=== PATIENT | male | born 1995 | race Caucasian/White ===

== ENCOUNTER → 2018-09-05 21:23 | Emergency (ER) | payer BC ==
[~2018-09-05 21:23] MED LIST: Bupivacaine 0.5% W/EPI SDV* 30 ML VIAL INJ ONE; Bupivacaine 0.5% W/EPI SDV* 30 ML VIAL ONE; Dexamethasone TAB* 4 MG PO ONE; Diazepam TAB(*) 5 MG PO ONE; Ketorolac TAB * 10 MG TAB PO ONE
--- NOTE | 2018-09-05 22:14 | ED ---
Back Pain - HPI Summary HPI Summary: Patient complains of sudden onset severe mid back pain while lifting load at work this evening. Denies urinary retention, incontinenc, radiation of pain down legs, decrease in function or sensation of bilateral lower extremities. Patient ambulatory with pain. Medical history is none. - History of Current Complaint Chief Complaint: EDBackInjuryPain Stated Complaint: BACK PAIN PER EMS Time Seen by Provider: 09/05/18 21:39 Hx Obtained From: Patient Onset/Duration: Sudden Onset Onset/Duration: Started Hours Ago Timing: Constant Back Pain Location: Is Discrete @ Severity Initially: Severe Severity Currently: Severe Pain Intensity: 10 Pain Scale Used: 0-10 Numeric Character: Throbbing, Spasmodic Aggravating Symptom(s): Movement, Bending, Walking Alleviating Symptom(s): Position Associated Signs And Symptoms: Positive: Negative - Allergies/Home Medications Allergies/Adverse Reactions: Allergies Allergy/AdvReac Type Severity Reaction Status Date / Time No Known Allergies Allergy Verified 09/05/18 21:32 PMH/Surg Hx/FS Hx/Imm Hx Endocrine/Hematology History: Denies: Hx Diabetes Cardiovascular History: Denies: Hx Hypertension, Hx Pacemaker/ICD Respiratory History: Reports: Hx Asthma History: Denies: Hx Renal Disease Sensory History: Denies: Hx Hearing Aid Opthamlomology History: Denies: Hx Legally Blind EENT History: Denies: Hx Deafness Neurological History: Denies: Hx Dementia Psychiatric History: Denies: Hx Panic Disorder Infectious Disease History: No Infectious Disease History: Denies: Traveled Outside the [place] in Last 30 Days - Social History Alcohol Use: None Substance Use Type: Reports: None Smoking Status (MU): Never Smoked Tobacco Review of Systems Constitutional: Negative Eyes: Negative ENT: Negative Cardiovascular: Negative Respiratory: Negative Gastrointestinal: Negative Genitourinary: Negative Musculoskeletal: Other Skin: Negative Neurological: Negative Psychological: Normal All Other Systems Reviewed And Are Negative: Yes Physical Exam - Summary Physical Exam Summary: Tender to palpation along purpose spinal muscles of the lower thoracic spine. No bony point tenderness. Paraspinal muscles along lumbar spine nontender. PMS intact distally in bilateral lower extremities. No erythema, ecchymosis, mass, deformity, swelling noted to back. Abdomen soft nontender. Triage Information Reviewed: Yes Vital Signs On Initial Exam: Initial Vitals Temp Pulse Resp BP Pulse Ox 99.6 F 96 18 145/83 97 09/05/18 21:30 09/05/18 21:30 09/05/18 21:30 09/05/18 21:30 09/05/18 21:30 Vital Signs Reviewed: Yes Appearance: Positive: Well-Appearing Skin: Positive: Warm Head/Face: Positive: Normal Head/Face Inspection Eyes: Positive: Normal Neck: Positive: Supple Respiratory/Lung Sounds: Positive: Clear to Auscultation Cardiovascular: Positive: Normal Abdomen Description: Positive: Nontender Musculoskeletal: Positive: Normal Neurological: Positive: Normal Psychiatric: Positive: Normal AVPU Assessment: Alert - Wilfrid Coma Scale Best Eye Response: 4 - Spontaneous Best Motor Response: 6 - Obeys Commands Best Verbal Response: 5 - Oriented Coma Scale Total: 15 Diagnostics - Vital Signs Vital Signs Temp Pulse Resp BP Pulse Ox 09/05/18 22:00 86 96 09/05/18 21:49 18 09/05/18 21:31 94 145/83 97 09/05/18 21:30 99.6 F 96 18 145/83 97 - Laboratory Lab Statement: Any lab studies that have been ordered have been reviewed, and results considered in the medical decision making process. Back Pain Course/Dx - Course Course Of Treatment: Patient complains of sudden onset severe mid back pain while lifting load at work this evening. Denies urinary retention, incontinenc , radiation of pain down legs, decrease in function or sensation of bilateral lower extremities. Patient ambulatory with pain. Medical history is none. Physical exam:Tender to palpation along purpose spinal muscles of the lower thoracic spine. No bony point tenderness. Paraspinal muscles along lumbar spine nontender. PMS intact distally in bilateral lower extremities. No erythema, ecchymosis, mass, deformity, swelling noted to back. Abdomen soft nontender. Vital signs within normal limits. Patient did not improve with Toradol and Valium 5 mg by mouth. Lidocaine trigger point injection administered by Dr. Wright with immediate improvement in patient's back pain. Patient sat up and was ambulatory within minutes. Rx for Flexeril. Occurred at work. - Diagnoses Provider Diagnoses: Muscle spasm Discharge - Sign-Out/Discharge Documenting (check all that apply): Patient Departure Patient Received Moderate/Deep Sedation with Procedure: No - Discharge Plan Condition: Stable Disposition: HOME Prescriptions: Cyclobenzaprine TAB* [Flexeril 10 MG TAB*] 10 mg PO TID PRN 4 Days #12 tab PRN Reason: Pain Patient Education Materials: Muscle Spasm (ED) Forms: *Work Release Referrals: Frank Doll MD [Primary Care Provider] - Additional Instructions: Take Flexeril each night before you go to bed. Movement is good but avoid strenuous activity for couple days. Return to the ED for any new or worsening symptoms. - Billing Disposition and Condition Condition: STABLE Disposition: Home
--- NOTE | 2018-09-05 22:48 | ED ---
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 He was injected with a total of 20 cc of 0.5% bupivacaine with epinephrine and divided aliquots. This was massaged through the tissues. He experienced great relief of his pain and spasm and regained range of motion. He tolerated this well without complication. Course/Dx - Diagnoses Provider Diagnoses: Muscle spasm Discharge - Sign-Out/Discharge Documenting (check all that apply): Patient Departure - D/C home Patient Received Moderate/Deep Sedation with Procedure: No - Discharge Plan Condition: Stable Disposition: HOME Prescriptions: Cyclobenzaprine TAB* [Flexeril 10 MG TAB*] 10 mg PO TID PRN 4 Days #12 tab PRN Reason: Pain Patient Education Materials: Muscle Spasm (ED) Forms: *Work Release Referrals: Frank Doll MD [Primary Care Provider] - Additional Instructions: Take Flexeril each night before you go to bed. Movement is good but avoid strenuous activity for couple days. Return to the ED for any new or worsening symptoms. - Billing Disposition and Condition Condition: STABLE Disposition: Home - Attestation Statements Document Initiated by Jankiibe: Yes Documenting Scribe: Carlos Lynch Provider For Whom Scribe is Documenting (Include Credential): Yonathan Cantu MD Scribe Attestation: Carlos Henderson scribed for Yonathan Cantu MD on 09/06/18 at 0425. Scribe Documentation Reviewed: Yes Provider Attestation: The documentation as recorded by the Carlos banks accurately reflects the service I personally performed and the decisions made by me, Yonathan Cantu MD Status of Scribe Document: Viewed Procedures - Procedure Summary Procedure Summary: Trigger Point Injection: done for pain, patient laid supine, bilateral lower lumbar musculature cleaned with alcohol, musculature was injected with a total of 20 cc 0.5% Bupivacaine with Epinephrine in divided aliquots which was then massaged through the tissue, pain relief excellent, ROM restored, procedure tolerated well without complications
[2018-09-05 22:57] VITALS: BP 138/89
== END | disposition home or self-care (01) ==
LOC: ED 21:23
DX: M62.830 Muscle spasm of back (principal)
CPT/HCPCS: 96374; 96375; 99282; A9270-GY